=== PATIENT | male | born 1955 | race Caucasian/White ===

== ENCOUNTER → 2016-09-18 | Outpatient (CLI) | payer MEDICAID ==
--- NOTE | 2016-09-18 12:31 | REP ---
Cervical spine series: Seven views. History: Neck pain radiating down the arms for 5 weeks. Findings: There is straightening of the normal cervical lordosis. Limitation of flexion/extension range of motion is seen with no subluxation or instability. Vertebral body heights are preserved. There is degenerative disc disease at C3-4, C4-5, C5-6, and C6-7 with disc space narrowing and osteophyte formation at each of these levels. There is a stable 2-3 mm C2-3 anterior subluxation. There is osteoarthritic facet disease bilaterally at C2-3 and to a somewhat lesser extent C3-4, C4-5, and C5-6. Oblique images demonstrate uncovertebral spurring producing neural foraminal encroachment on the left at C3-4 and C6-7. On the right there is neural foraminal encroachment at C3-4, C5-6, and C6-7 from uncovertebral spurring. Open mouth odontoid view is unremarkable. Impression: Degenerative spondylosis changes as noted above. Signed by Ej Ramirez MD 09/18/2016 02:06 P
== END ==
LOC: M WUC 11:43
PROVIDERS: ATTEND Physician Assistant
DX: M47.812 Spondylosis without myelopathy or radiculopathy, cervical region (principal); M46.02 Spinal enthesopathy, cervical region; M54.2 Cervicalgia; M54.12 Radiculopathy, cervical region

== ENCOUNTER → 2016-11-28 | Outpatient (CLI) | payer OTHER ==
[2016-11-28 14:34] LABS: ALBUMIN 3.8 GM/DL (3.2-5.2); ALBUMIN/GLOBULIN RATIO 1.23 (1.00-1.93); ALKALINE PHOSPHATASE 84 U/L (45-117); ALT/SGPT 27 U/L (12-78); ANION GAP 5 MEQ/L (8-16); AST/SGOT 30 U/L (15-37); BILIRUBIN,TOTAL 0.5 MG/DL (0.2-1.0); BLOOD UREA NITROGEN 24 MG/DL (7-18); CALCIUM LEVEL 9.1 MG/DL (8.8-10.2); CARBON DIOXIDE LEVEL 31 MEQ/L (21-32); CHLORIDE LEVEL 107 MEQ/L (98-107); CHOLESTEROL LEVEL 138 MG/DL (<200); CREATININE FOR GFR 1.16 MG/DL (0.70-1.30); GLOMERULAR FILTRATION RATE > 60.0 (>49); GLUCOSE, FASTING 105 MG/DL (80-110); POTASSIUM SERUM 4.5 MEQ/L (3.5-5.1); SODIUM LEVEL 143 MEQ/L (136-145); TOTAL PROTEIN 6.9 GM/DL (6.4-8.2); TRIGLYCERIDES LEVEL 95 MG/DL (<150)
== END ==
LOC: M WUC 09:57
PROVIDERS: ATTEND Family Medicine
DX: Z12.5 Encounter for screening for malignant neoplasm of prostate (principal); E78.2 Mixed hyperlipidemia

== ENCOUNTER → 2018-06-04 | Outpatient (CLI) | payer OTHER ==
[2018-06-04 17:44] LABS: ALBUMIN 3.9 GM/DL (3.2-5.2); ALKALINE PHOSPHATASE 79 U/L (45-117); ALT/SGPT 35 U/L (12-78); ANION GAP 6 MEQ/L (8-16); AST/SGOT 35 U/L (7-37); BILIRUBIN,TOTAL 0.4 MG/DL (0.2-1.0); BLOOD UREA NITROGEN 22 MG/DL (7-18); CALCIUM LEVEL 8.9 MG/DL (8.8-10.2); CARBON DIOXIDE LEVEL 30 MEQ/L (21-32); CHLORIDE LEVEL 107 MEQ/L (98-107); CHOLESTEROL LEVEL 127 MG/DL (<200); CHOLESTEROL RISK RATIO 2.645 (<5); CREATININE FOR GFR 1.02 MG/DL (0.70-1.30); GLOMERULAR FILTRATION RATE > 60.0 (>49); GLUCOSE, FASTING 91 MG/DL (70-100); HDL CHOLESTEROL 48 MG/DL (>40); LDL CHOLESTEROL 61 MG/DL (<100); NON-HDL-C 79 MG/DL; POTASSIUM SERUM 4.4 MEQ/L (3.5-5.1); PSA SCREENING 0.47 NG/ML (< 4.0); SODIUM LEVEL 143 MEQ/L (136-145); TOTAL PROTEIN 6.9 GM/DL (6.4-8.2); TRIGLYCERIDES LEVEL 89 MG/DL (<150)
== END ==
LOC: M WUC 09:41
DX: E78.2 Mixed hyperlipidemia (principal); Z12.5 Encounter for screening for malignant neoplasm of prostate
CPT/HCPCS: 80053

== ENCOUNTER → 2018-06-08 | Outpatient (REF) | payer OTHER ==
[2018-06-08 17:39] LABS: BASO # 0.1 10^3/uL (0.0-0.2); BASO % 0.7 % (0.0-1.0); EOS # 0.2 10^3/uL (0.0-0.50); EOS % 2.2 % (0.0-3.0); HEMOGLOBIN 14.3 g/dl (13.5-17.5); IMMATURE GRANULOCYTE % 0.3 % (0-3.0); LYMPH # 3.1 10^3/uL (1.5-4.5); LYMPH % 33.7 % (24.0-44.0); MEAN CORPUSCULAR HEMOGLOBIN 28.8 pg (27.0-33.0); MEAN CORPUSCULAR VOLUME 84.7 fl (80.0-96.0); MONO # 0.8 10^3/uL (0.0-0.8); MONO % 9.2 % (0.0-5.0); NEUTROPHILS # 4.9 10^3/uL (1.8-7.7); NEUTROPHILS % 53.9 % (36.0-66.0); PLATELET COUNT, AUTOMATED 256 10^3/uL (150-450); RED BLOOD COUNT 4.96 10^6/uL (4.30-6.10); RED CELL DISTRIBUTION WIDTH 13.4 % (11.5-14.5); WHITE BLOOD COUNT 9.1 10^3/uL (4.0-10.0)
[2018-06-08 18:49] LABS: FREE T4 1.12 NG/DL (0.76-1.46)
== END ==
LOC: M SFHCADAM 15:42
DX: R63.4 Abnormal weight loss (principal)

== ENCOUNTER → 2018-11-16 | Outpatient (REF) | payer OTHER ==
[2018-11-16 19:28] LABS: HEMATOCRIT 44.9 % (42.0-52.0); HEMOGLOBIN 14.8 g/dl (13.5-17.5); MEAN CORPUSCULAR HEMOGLOBIN 28.5 pg (27.0-33.0); MEAN CORPUSCULAR VOLUME 86.3 fl (80.0-96.0); PLATELET COUNT, AUTOMATED 271 10^3/uL (150-450); WHITE BLOOD COUNT 8.9 10^3/uL (4.0-10.0)
[2018-11-16 19:45] LABS: ALBUMIN 4.1 GM/DL (3.2-5.2); ALT/SGPT 27 U/L (12-78); BILIRUBIN,TOTAL 0.6 MG/DL (0.2-1.0); BLOOD UREA NITROGEN 15 MG/DL (7-18); CALCIUM LEVEL 9.1 MG/DL (8.8-10.2); CARBON DIOXIDE LEVEL 30 MEQ/L (21-32); CHLORIDE LEVEL 105 MEQ/L (98-107); CHOLESTEROL LEVEL 143 MG/DL (<200); CHOLESTEROL RISK RATIO 2.465 (<5); CREATININE FOR GFR 1.03 MG/DL (0.70-1.30); FREE T4 1.08 NG/DL (0.76-1.46); GLOMERULAR FILTRATION RATE > 60.0 (>49); GLUCOSE, FASTING 74 MG/DL (70-100); HDL CHOLESTEROL 58 MG/DL (>40); LDL CHOLESTEROL 67 MG/DL (<100); NON-HDL-C 85 MG/DL; POTASSIUM SERUM 4.9 MEQ/L (3.5-5.1); SODIUM LEVEL 140 MEQ/L (136-145); TOTAL PROTEIN 7.5 GM/DL (6.4-8.2); TRIGLYCERIDES LEVEL 88 MG/DL (<150)
== END ==
LOC: M SFHCADAM 16:37
PROVIDERS: ATTEND Family Medicine
DX: R07.9 Chest pain, unspecified (principal); R00.2 Palpitations; E78.2 Mixed hyperlipidemia; R94.31 Abnormal electrocardiogram [ECG] [EKG]

== ENCOUNTER → 2018-12-20 | Outpatient (CLI) | payer OTHER ==
--- NOTE | 2018-12-21 04:40 | REP ---
Clinical: Lung screening. History nicotine dependence. Comparison: 04/23/2014 Technique: Axial low-dose noncontrast images from the thoracic inlet to the upper abdomen using lung screening technique. Findings: The lung guillen are well-aerated. No consolidation, significant nodule or mass lesion is appreciated. Few small scattered noncalcified nodules are again identified and remain stable compared to 2013. No pleural effusion/reaction or pneumothorax. Tracheobronchial tree is patent. Mediastinum demonstrates atherosclerotic changes of the coronary arteries without cardiomegaly as well as congenital aberrant right subclavian artery. Impression: Lung-RADS category I. Stable scattered noncalcified nodules unchanged compared to 04/23/2014. No new significant nodule or suspicious abnormality. Management recommendations include annual low-dose CT evaluation. Electronically Signed by Jonas Jean MD 12/21/2018 04:31 A
== END ==
LOC: M RAD 10:10
PROVIDERS: ATTEND Family Medicine
DX: Z12.2 Encounter for screening for malignant neoplasm of respiratory organs (principal); Z87.891 Personal history of nicotine dependence; R91.8 Other nonspecific abnormal finding of lung field

== ENCOUNTER → 2020-04-08 | Outpatient (REF) | payer MEDICARE, MEDICAID ==
[2020-05-02 11:38] LABS: BASO % 0.4 % (0.0-1.0); EOS # 0.2 10^3/uL (0.0-0.5); HEMATOCRIT 42.8 % (42.0-52.0); HEMOGLOBIN 14.2 g/dl (13.5-17.5); LYMPH # 2.7 10^3/uL (1.5-5.0); LYMPH % 29.8 % (24.0-44.0); MEAN CORPUSCULAR HEMOGLOBIN 28.6 pg (27.0-33.0); MEAN CORPUSCULAR HGB CONC 33.2 g/dl (32.0-36.5); MEAN CORPUSCULAR VOLUME 86.3 fl (80.0-96.0); MONO # 0.8 10^3/uL (0.0-0.8); MONO % 8.7 % (0.0-5.0); NEUTROPHILS # 5.3 10^3/uL (1.5-8.5); NEUTROPHILS % 58.9 % (36.0-66.0); PLATELET COUNT, AUTOMATED 270 10^3/uL (150-450); RED BLOOD COUNT 4.96 10^6/uL (4.30-6.10)
[2020-05-02 11:39] LABS: ERYTHROCYTE SEDIMENTATION RATE 7 mm/hr (0-20)
[2020-05-12 14:53] LABS: ALBUMIN 4.1 GM/DL (3.2-5.2); ALT/SGPT 25 U/L (12-78); BILIRUBIN,TOTAL 0.5 MG/DL (0.2-1.0); BLOOD UREA NITROGEN 22 MG/DL (7-18); CALCIUM LEVEL 9.6 MG/DL (8.8-10.2); CARBON DIOXIDE LEVEL 32 MEQ/L (21-32); CHLORIDE LEVEL 104 MEQ/L (98-107); CHOLESTEROL LEVEL 141 MG/DL (<200); CHOLESTEROL RISK RATIO 2.711 (<5); CREATININE FOR GFR 1.18 MG/DL (0.70-1.30); FREE T4 1.16 NG/DL (0.76-1.46); GLOMERULAR FILTRATION RATE > 60.0 (>49); GLUCOSE, FASTING 89 MG/DL (70-100); HDL CHOLESTEROL 52 MG/DL (>40); LDL CHOLESTEROL 69 MG/DL (<100); NON-HDL-C 89 MG/DL; POTASSIUM SERUM 4.3 MEQ/L (3.5-5.1); SODIUM LEVEL 141 MEQ/L (136-145); TOTAL PROTEIN 7.3 GM/DL (6.4-8.2); TRIGLYCERIDES LEVEL 102 MG/DL (<150)
== END ==
LOC: M LABDRWAD 15:26
PROVIDERS: ATTEND Family Medicine
DX: E78.5 Hyperlipidemia, unspecified (principal); R63.4 Abnormal weight loss; Z12.5 Encounter for screening for malignant neoplasm of prostate
CPT/HCPCS: 36415; 80053; 80061; 84439; 84443; 85025; 85652; G0103; G0402; G0463

== ENCOUNTER → 2020-05-03 | Outpatient (CLI) | payer MEDICARE, MEDICAID ==
[2020-05-03 15:09] LABS: ALT/SGPT 21 U/L (12-78); BILIRUBIN,TOTAL 0.6 MG/DL (0.2-1.0); BLOOD UREA NITROGEN 16 MG/DL (7-18); CALCIUM LEVEL 9.6 MG/DL (8.8-10.2); CARBON DIOXIDE LEVEL 36 MEQ/L (21-32); CHLORIDE LEVEL 105 MEQ/L (98-107); CREATININE FOR GFR 0.93 MG/DL (0.70-1.30); GLOMERULAR FILTRATION RATE > 60.0 (>49); GLUCOSE, FASTING 96 MG/DL (70-100); POTASSIUM SERUM 4.4 MEQ/L (3.5-5.1); SODIUM LEVEL 142 MEQ/L (136-145); TOTAL PROTEIN 7.3 GM/DL (6.4-8.2)
[2020-05-03 15:11] LABS: HEMOGLOBIN A1c 5.6 %
== END ==
LOC: M WUC 08:03
PROVIDERS: ATTEND Family Medicine
DX: H53.31 Abnormal retinal correspondence (principal)

== ENCOUNTER → 2020-09-25 | Outpatient (CLI) | payer MEDICARE, MEDICAID ==
--- NOTE | 2020-09-26 05:31 | REP ---
INDICATION: LUNG CANCER SCREENING COMPARISON: 12/20/2018, 04/23/2014 TECHNIQUE: Axial noncontrast images from the thoracic inlet to the upper abdomen using low-dose lung screening technique (LDCT). FINDINGS: Lung guillen demonstrate moderate emphysematous changes along with stable scattered small nodules measuring no greater than 3 mm and unchanged compared with 2013. Small amounts of linear scarring noted at the lingula and bases. No acute consolidation, significant nodule or mass lesion. No pleural effusion or pneumothorax. Tracheobronchial tree is patent. IMPRESSION: Lung rads category 2. Small stable nodules unchanged compared to 2013. Management recommendations include annual low-dose CT surveillance. <Electronically signed by Jonas Jean > 09/26/20 [id number]
== END ==
LOC: M RAD 18:32
PROVIDERS: ATTEND Family Medicine
DX: Z12.2 Encounter for screening for malignant neoplasm of respiratory organs (principal); Z87.891 Personal history of nicotine dependence

== ENCOUNTER → 2021-03-03 | Outpatient (CLI) | payer MEDICARE, MEDICAID ==
[~2021-03-03] MED LIST: PROHANCE 279.3MG/ML 15ML VIAL As Ordered ONE
--- NOTE | 2021-03-05 08:51 | REP ---
INDICATION: RT RENAL MASS. COMPARISON: [facility] 01/23/2021. TECHNIQUE: Multiple sequences obtained in the axial coronal planes prior to and following the intravenous administration of 11 mL ProHance. FINDINGS: There is a 1.6 cm nodule in the lateral lower peripheral right renal cortex. This demonstrates low signal on both T1 and T2 weighted images. There is internal enhancement with the intravenous administration of contrast. This may represent renal cell carcinoma. Otherwise, there are multiple bilateral benign, nonenhancing renal cysts present in both upper and lower poles. The largest cyst on the right is in the upper pole measuring 1.4 cm in maximum diameter. The largest cyst on the left is in the lower pole and measures 2.1 cm in maximum diameter. There is no hydronephrosis bilaterally. The liver, spleen, adrenals and pancreas demonstrate no abnormality. The gallbladder demonstrates no filling defect or evidence of wall edema. There is no biliary duct or pancreatic duct dilatation. There is no adenopathy or free fluid. IMPRESSION: There is a 1.6 cm nodule in the lateral lower right kidney which demonstrates enhancement and may represent renal cell carcinoma. Multiple bilateral renal cysts. No adenopathy or free fluid. <Electronically signed by Jerson Edge > 03/05/21 [id number]
== END ==
LOC: M RAD 08:06
PROVIDERS: ATTEND Urology
DX: N28.89 Other specified disorders of kidney and ureter (principal); N28.1 Cyst of kidney, acquired
CPT/HCPCS: 74183; A9576

== ENCOUNTER → 2021-04-09 | Outpatient (REF) | payer MEDICARE ==
[~2021-04-09] MED LIST changes: +ATOR1TAB19 PO; +DOK1CAP4 PO; +ECOT81TA5 PO; +FISH1000 PO; +INCR1INH INH; +PERCOCET PO; -PROHANCE 279.3MG/ML 15ML VIAL As Ordered ONE; +VITA-243 PO; +VITMTA PO
[2021-04-09 18:44] LABS: HEMATOCRIT 44.4 % (42.0-52.0); HEMOGLOBIN 14.8 g/dl (13.5-17.5); MEAN CORPUSCULAR HEMOGLOBIN 29.1 pg (27.0-33.0); MEAN CORPUSCULAR HGB CONC 33.3 g/dl (32.0-36.5); MEAN CORPUSCULAR VOLUME 87.4 fl (80.0-96.0); PLATELET COUNT, AUTOMATED 268 10^3/uL (150-450); RED BLOOD COUNT 5.08 10^6/uL (4.30-6.10); WHITE BLOOD COUNT 8.5 10^3/uL (4.0-10.0)
[2021-04-09 18:45] LABS: BASO # 0.1 10^3/uL (0.0-0.2); BASO % 0.6 % (0.0-1.0); EOS # 0.3 10^3/uL (0.0-0.5); EOS % 3.2 % (0.0-3.0); HEMATOCRIT 44.2 % (42.0-52.0); HEMOGLOBIN 14.8 g/dl (13.5-17.5); LYMPH % 34.3 % (24.0-44.0); MEAN CORPUSCULAR HEMOGLOBIN 29.3 pg (27.0-33.0); MEAN CORPUSCULAR HGB CONC 33.5 g/dl (32.0-36.5); MEAN CORPUSCULAR VOLUME 87.5 fl (80.0-96.0); MONO # 0.8 10^3/uL (0.0-0.8); MONO % 9.2 % (2.0-8.0); NEUTROPHILS # 4.5 10^3/uL (1.5-8.5); NEUTROPHILS % 52.5 % (36.0-66.0); PLATELET COUNT, AUTOMATED 261 10^3/uL (150-450); RED BLOOD COUNT 5.05 10^6/uL (4.30-6.10); WHITE BLOOD COUNT 8.7 10^3/uL (4.0-10.0)
[2021-04-09 18:48] LABS: APPEARANCE, URINE CLEAR (CLEAR); BACTERIA, URINE AUTO NEGATIVE (NEGATIVE); BILIRUBIN, URINE AUTO NEGATIVE (NEGATIVE); BLOOD, URINE BLOOD NEGATIVE (NEGATIVE); COLOR, URINE YELLOW (YELLOW); GLUCOSE, URINE (UA) AUTO NEGATIVE (NEGATIVE); KETONE, URINE AUTO NEGATIVE (NEGATIVE); LEUKOCYTE ESTERASE, URINE AUTO NEGATIVE (NEGATIVE); NITRITE, URINE AUTO NEGATIVE (NEGATIVE); PROTEIN, URINE AUTO NEGATIVE (NEGATIVE); RBC, URINE AUTO 0 /HPF (0-3); SPECIFIC GRAVITY URINE AUTO 1.009 (1.002-1.035); SQUAMOUS EPITHELIAL CELL UR AU 0 /HPF (0-6); UROBILINOGEN, URINE AUTO 0.2 mg/dL (0.0-2.0); WBC, URINE AUTO 1 /HPF (0-3)
[2021-04-09 19:06] LABS: ALBUMIN 3.7 GM/DL (3.2-5.2); ALT/SGPT 26 U/L (12-78); BILIRUBIN,TOTAL 0.4 MG/DL (0.2-1.0); BLOOD UREA NITROGEN 17 MG/DL (7-18); CALCIUM LEVEL 8.9 MG/DL (8.8-10.2); CARBON DIOXIDE LEVEL 35 MEQ/L (21-32); CHLORIDE LEVEL 106 MEQ/L (98-107); CREATININE FOR GFR 0.99 MG/DL (0.70-1.30); GLOMERULAR FILTRATION RATE > 60.0 (>49); GLUCOSE, FASTING 58 MG/DL (70-100); POTASSIUM SERUM 4.1 MEQ/L (3.5-5.1); SODIUM LEVEL 143 MEQ/L (136-145); TOTAL PROTEIN 6.8 GM/DL (6.4-8.2)
== END ==
LOC: M SFHCADAM 15:55
PROVIDERS: ATTEND Family Medicine
DX: Z01.818 Encounter for other preprocedural examination (principal); N28.89 Other specified disorders of kidney and ureter

== ENCOUNTER → 2021-04-09 | Outpatient (CLI) | payer MEDICARE ==
--- NOTE | 2021-04-09 16:20 | REP ---
INDICATION: PREOP, RENAL MASS. COMPARISON: 12/14/2015 TECHNIQUE: PA and lateral FINDINGS: The cardiomediastinal silhouette lung guillen are unchanged. A small unchanged nodule is seen in the right lower lobe. No acute patchy parenchymal opacities or pleural effusions have developed. The osseous structures are unchanged. IMPRESSION: No evidence of acute cardiopulmonary disease or significant change compared to the prior plain film examination of 12/14/2015 which is the latest prior for comparison. The patient did have a low-dose screening CT examination of the lungs 09/25/2020 and all interested parties should review that report for further information. CT is more sensitive than is plain radiography in detecting lung nodules. <Electronically signed by Fady Gross > 04/09/21 [id number]
== END ==
LOC: M ADAMS 15:57
PROVIDERS: ATTEND Urology
DX: N28.89 Other specified disorders of kidney and ureter (principal)
CPT/HCPCS: 71046; 80053; 81001; 85025; 85027; 87086; G0103; G0463

== ENCOUNTER → 2021-04-11 | Outpatient (CLI) | payer MEDICARE, MEDICAID ==
[~2021-04-11] MED LIST changes: -DOK1CAP4 PO; -PERCOCET PO
== END ==
LOC: M LABSMTC 09:36
PROVIDERS: ATTEND Anesthesiology
DX: Z01.812 Encounter for preprocedural laboratory examination (principal); Z20.822 Contact with and (suspected) exposure to COVID-19

== ENCOUNTER → 2021-05-13 | Outpatient (CLI) | payer MEDICARE, MEDICAID ==
[~2021-05-13] MED LIST changes: +DOK1CAP4 PO; +PERCOCET PO
[2021-05-13 19:56] LABS: BLOOD UREA NITROGEN 21 MG/DL (7-18); CALCIUM LEVEL 9.7 MG/DL (8.8-10.2); CARBON DIOXIDE LEVEL 32 MEQ/L (21-32); CHLORIDE LEVEL 107 MEQ/L (98-107); CREATININE FOR GFR 1.09 MG/DL (0.70-1.30); GLOMERULAR FILTRATION RATE > 60.0 (>49); GLUCOSE, FASTING 84 MG/DL (70-100); POTASSIUM SERUM 4.1 MEQ/L (3.5-5.1); SODIUM LEVEL 141 MEQ/L (136-145)
[2021-05-13 19:57] LABS: HEMATOCRIT 40.6 % (42.0-52.0); HEMOGLOBIN 13.5 g/dl (13.5-17.5); MEAN CORPUSCULAR HEMOGLOBIN 28.5 pg (27.0-33.0); MEAN CORPUSCULAR HGB CONC 33.3 g/dl (32.0-36.5); MEAN CORPUSCULAR VOLUME 85.8 fl (80.0-96.0); PLATELET COUNT, AUTOMATED 258 10^3/uL (150-450); RED BLOOD COUNT 4.73 10^6/uL (4.30-6.10); WHITE BLOOD COUNT 8.3 10^3/uL (4.0-10.0)
== END ==
LOC: M WUC 15:05
PROVIDERS: ATTEND Urology
DX: C64.1 Malignant neoplasm of right kidney, except renal pelvis (principal)

== ENCOUNTER → 2021-05-29 | Outpatient (REF) | payer MEDICARE, MEDICAID ==
[2021-05-29 13:14] LABS: APPEARANCE, URINE CLEAR (CLEAR); BILIRUBIN, URINE AUTO NEGATIVE (NEGATIVE); BLOOD, URINE BLOOD NEGATIVE (NEGATIVE); COLOR, URINE YELLOW (YELLOW); GLUCOSE, URINE (UA) AUTO NEGATIVE (NEGATIVE); KETONE, URINE AUTO NEGATIVE (NEGATIVE); LEUKOCYTE ESTERASE, URINE AUTO NEGATIVE (NEGATIVE); NITRITE, URINE AUTO NEGATIVE (NEGATIVE); PROTEIN, URINE AUTO NEGATIVE (NEGATIVE); SPECIFIC GRAVITY URINE AUTO 1.004 (1.002-1.035); UROBILINOGEN, URINE AUTO 0.2 mg/dL (0.0-2.0)
[2021-05-29 13:21] LABS: BACTERIA, URINE AUTO NEGATIVE (NEGATIVE); MUCUS, URINE SMALL (NEGATIVE); RBC, URINE AUTO 1 /HPF (0-3); SQUAMOUS EPITHELIAL CELL UR AU 0 /HPF (0-6); WBC, URINE AUTO 1 /HPF (0-3)
== END ==
LOC: M SMT 12:52
PROVIDERS: ATTEND Nurse Practitioner Women's Health
DX: R30.0 Dysuria (principal)

== ENCOUNTER → 2021-06-03 | Outpatient (REF) | payer MEDICARE, MEDICAID ==
[2021-06-03 18:18] LABS: BASO # 0.1 10^3/uL (0.0-0.2); BASO % 0.7 % (0.0-1.0); EOS # 0.3 10^3/uL (0.0-0.5); EOS % 3.9 % (0.0-3.0); HEMATOCRIT 42.7 % (42.0-52.0); HEMOGLOBIN 14.2 g/dl (13.5-17.5); LYMPH # 2.9 10^3/uL (1.5-5.0); LYMPH % 35.8 % (24.0-44.0); MEAN CORPUSCULAR HEMOGLOBIN 28.6 pg (27.0-33.0); MEAN CORPUSCULAR HGB CONC 33.3 g/dl (32.0-36.5); MEAN CORPUSCULAR VOLUME 86.1 fl (80.0-96.0); MONO # 0.7 10^3/uL (0.0-0.8); MONO % 8.4 % (2.0-8.0); NEUTROPHILS # 4.1 10^3/uL (1.5-8.5); PLATELET COUNT, AUTOMATED 281 10^3/uL (150-450); RED BLOOD COUNT 4.96 10^6/uL (4.30-6.10); WHITE BLOOD COUNT 8.1 10^3/uL (4.0-10.0)
[2021-06-03 18:36] LABS: ALBUMIN 3.6 GM/DL (3.2-5.2); ALT/SGPT 22 U/L (12-78); BILIRUBIN,TOTAL 0.5 MG/DL (0.2-1.0); BLOOD UREA NITROGEN 21 MG/DL (7-18); CALCIUM LEVEL 10.2 MG/DL (8.8-10.2); CARBON DIOXIDE LEVEL 32 MEQ/L (21-32); CHLORIDE LEVEL 106 MEQ/L (98-107); CREATININE FOR GFR 1.09 MG/DL (0.70-1.30); GLOMERULAR FILTRATION RATE > 60.0 (>49); GLUCOSE, FASTING 80 MG/DL (70-100); POTASSIUM SERUM 4.3 MEQ/L (3.5-5.1); SODIUM LEVEL 140 MEQ/L (136-145); TOTAL PROTEIN 7.1 GM/DL (6.4-8.2)
== END ==
LOC: M SFHCADAM 14:18
PROVIDERS: ATTEND Family Medicine
DX: R25.2 Cramp and spasm (principal)

== ENCOUNTER → 2021-07-30 | Outpatient (REF) | payer MEDICARE, MEDICAID ==
[2021-07-30 17:41] LABS: HEMATOCRIT 41.8 % (42.0-52.0); HEMOGLOBIN 13.8 g/dl (13.5-17.5); MEAN CORPUSCULAR HEMOGLOBIN 28.3 pg (27.0-33.0); MEAN CORPUSCULAR VOLUME 85.8 fl (80.0-96.0); PLATELET COUNT, AUTOMATED 271 10^3/uL (150-450); RED BLOOD COUNT 4.87 10^6/uL (4.30-6.10)
[2021-07-30 18:07] LABS: ALBUMIN 3.6 GM/DL (3.2-5.2); ALT/SGPT 25 U/L (12-78); BILIRUBIN,TOTAL 0.5 MG/DL (0.2-1.0); BLOOD UREA NITROGEN 17 MG/DL (7-18); CALCIUM LEVEL 9.8 MG/DL (8.8-10.2); CARBON DIOXIDE LEVEL 32 MEQ/L (21-32); CHLORIDE LEVEL 106 MEQ/L (98-107); FREE T4 1.09 NG/DL (0.76-1.46); GLOMERULAR FILTRATION RATE > 60.0 (>49); GLUCOSE, FASTING 63 MG/DL (70-100); POTASSIUM SERUM 4.9 MEQ/L (3.5-5.1); SODIUM LEVEL 140 MEQ/L (136-145); TOTAL PROTEIN 7.1 GM/DL (6.4-8.2)
== END ==
LOC: M SFHCADAM 16:00
PROVIDERS: ATTEND Family Medicine
DX: I11.9 Hypertensive heart disease without heart failure (principal); R00.0 Tachycardia, unspecified

== ENCOUNTER → 2021-08-13 | Outpatient (CLI) | payer MEDICARE, MEDICAID ==
--- NOTE | 2021-08-18 07:49 | ECHO ---
ECHOCARDIOGRAM DATE OF PROCEDURE: 08/13/2021 Age: 66 Gender: Male Height: 177 cm Weight: 57 kg REFERRING PHYSICIAN: Dr. Milton Kendrick PATIENT LOCATION: Outpatient REASON FOR THE STUDY: Hypertensive heart disease, tachycardia 2D MEASUREMENTS: 2D MEASUREMENTS: IVS 1.4 cm LV 3.5 cm LVPW 1.4 cm LA 2.4 cm Aorta 3.3 cm IVC 1.3 cm DOPPLER MEASURMENTS: Peak velocity across the aortic valve 1.0 m/s Peak velocity across the LVOT 0.78 m/s Mitral E 0.53, mitral A 0.53 with a ratio of 1.0 Maximum tricuspid valve velocity 2.4 m/s 2D COMMENTS: 1. Normal left ventricular size with mildly increased left ventricular wall thickness and a normal global left ventricular systolic function. The estimated left ventricular systolic ejection fraction is 60% to 65%. 2. Normal left atrium. Normal right atrium and right ventricle. 3. The atrial septum appeared to be normal without evidence of defect or shunt. 4. Normal aortic root. 5. No pericardial effusion seen. 6. Mildly calcified aortic valve with normal leaflet excursion. Mildly calcified mitral annulus with normal anterior mitral valvae leaflet motion. Normal tricuspid valve and pulmonic valve. 7. The inferior vena cava was normal in size, central venous pressure is most likely normal. DOPPLER: It detects trace mitral regurgitation and mild tricuspid regurgitation. The calculated pulmonary artery systolic pressure varies between 20-40 mmHg. CONCLUSIONS: 1. Normal global left ventricular systolic function with mild concentric left ventricular hypertrophy. 2. Aortic valve sclerosis without stenosis or aortic regurgitation. 3. Mitral annulus calcification with trace mitral regurgitation. 4. Mild tricuspid regurgitation with mild to moderate hypertension.
== END ==
LOC: M CARPUL 09:16
PROVIDERS: ATTEND Family Medicine
DX: I11.9 Hypertensive heart disease without heart failure (principal); R00.0 Tachycardia, unspecified; I08.3 Combined rheumatic disorders of mitral, aortic and tricuspid valves

== ENCOUNTER 2021-09-28 21:38 | Emergency (ER) | payer MEDICARE, MEDICAID ==
[~2021-09-28] VITALS: Ht 165.1 cm; Wt 58.2 kg
[2021-09-28] MEDS ORDERED: MORPHINE 4 MG/ML 1ML VIAL/SYRINGE (J2270) IV PRN (21:55)
[2021-09-28] MEDS ORDERED: ONDANSETRON 4MG/2ML VIAL IV ONE (21:55)
[2021-09-28] MEDS ORDERED: BOOSTRIX/ADACEL VACCINE (DIPHTH/PERTUSS/ACELL/TETANUS) 0.5ML SYR IM ONE (21:55)
[2021-09-28 22:15] LABS: HEMATOCRIT 41.8 % (42.0-52.0); MEAN CORPUSCULAR HEMOGLOBIN 28.8 pg (27.0-33.0); MEAN CORPUSCULAR HGB CONC 33.5 g/dl (32.0-36.5); PLATELET COUNT, AUTOMATED 251 10^3/uL (150-450); RED BLOOD COUNT 4.86 10^6/uL (4.30-6.10); WHITE BLOOD COUNT 11.8 10^3/uL (4.0-10.0)
[2021-09-28] MEDS ORDERED: cefTRIAXone SOD 1 GM in D5W MINI-BAG PLUS 50 ML IV ONE (22:25)
[2021-09-28] MEDS ORDERED: CEPH500C PO (23:22)
[2021-09-28] MEDS ORDERED: PERC5TAB12 PO (23:22)
[2021-09-28] MEDS ORDERED: OXYCODONE/APAP 5MG/325MG(BULK FOR ED) 1 TABLET PO ONE (23:35)
[2021-09-28 23:38] LABS: BLOOD UREA NITROGEN 15 MG/DL (7-18); CALCIUM LEVEL 9.3 MG/DL (8.8-10.2); CARBON DIOXIDE LEVEL 30 MEQ/L (21-32); CHLORIDE LEVEL 109 MEQ/L (98-107); CREATININE FOR GFR 0.94 MG/DL (0.70-1.30); GLOMERULAR FILTRATION RATE > 60.0 (>49); GLUCOSE, FASTING 93 MG/DL (70-100); POTASSIUM SERUM 4.5 MEQ/L (3.5-5.1); SODIUM LEVEL 145 MEQ/L (136-145)
[2021-09-30] MEDS ORDERED: LISI10TA22 PO (13:43)
== END 2021-09-29 00:26 | disposition home or self-care (01) ==
LOC: M ED 21:38
DX: S62.633B Displaced fracture of distal phalanx of left middle finger, initial encounter for open fracture (principal); W29.3XXA Contact with powered garden and outdoor hand tools and machinery, initial encounter; Y92.009 Unspecified place in unspecified non-institutional (private) residence as the place of occurrence of the external cause; Y93.29 Activity, other involving ice and snow; Y99.9 Unspecified external cause status; M18.12 Unilateral primary osteoarthritis of first carpometacarpal joint, left hand; I10 Essential (primary) hypertension; E78.5 Hyperlipidemia, unspecified; Z79.82 Long term (current) use of aspirin; Z79.899 Other long term (current) drug therapy; Z88.0 Allergy status to penicillin
CPT/HCPCS: 73130; 80048; 85027; 90471; 90715; 96374; 96375; 99284; J0696; J2270; J2405

== ENCOUNTER → 2021-09-29 | Outpatient (CLI) | payer MEDICARE, MEDICAID ==
[~2021-09-29] MED LIST changes: +CEPH500C PO; +LISI10TA22 PO; +PERC5TAB12 PO
== END ==
LOC: M SOG 10:44
PROVIDERS: ATTEND Orthopaedic Surgery Hand Surgery
DX: M25.521 Pain in right elbow (principal); M25.531 Pain in right wrist; M79.641 Pain in right hand; M25.579 Pain in unspecified ankle and joints of unspecified foot; M79.671 Pain in right foot; M85.871 Other specified disorders of bone density and structure, right ankle and foot; M19.071 Primary osteoarthritis, right ankle and foot; M19.021 Primary osteoarthritis, right elbow; S62.310A Displaced fracture of base of second metacarpal bone, right hand, initial encounter for closed fracture; S62.312A Displaced fracture of base of third metacarpal bone, right hand, initial encounter for closed fracture; X58.XXXA Exposure to other specified factors, initial encounter; Y92.9 Unspecified place or not applicable; Y93.9 Activity, unspecified; Y99.9 Unspecified external cause status; M19.041 Primary osteoarthritis, right hand

== ENCOUNTER → 2021-09-30 | Outpatient (CLI) | payer MEDICARE, MEDICAID ==
[~2021-09-30] MED LIST changes: +OXYC1TAB23 PO
== END ==
LOC: M LABSMTC 12:38
PROVIDERS: ATTEND Anesthesiology
DX: Z01.812 Encounter for preprocedural laboratory examination (principal); Z20.822 Contact with and (suspected) exposure to COVID-19

== ENCOUNTER 2021-10-02 09:13 | Day surgery (SDC) | payer MEDICARE, MEDICAID ==
[~2021-10-02] VITALS: Ht 165.1 cm; Wt 56.7 kg
[~2021-10-02 09:13] MED LIST changes: +CLINDAMYCIN 900 MG in IV 1 EA IV ONE; +LIDOCAINE 1% MDV 20ML VIAL SQ PRN; +LR 1,000 ML IV ONE; -OXYC1TAB23 PO
[2021-10-02] MEDS ORDERED: MIDAZOLAM INJ 2MG/2ML VIAL (J2250 PER 1MG) As Ordered ONE (11:08)
[2021-10-02] MEDS ORDERED: LIDOCAINE 2% 100MG/5ML SDV (FOR ANES.) As Ordered ONE (11:08)
[2021-10-02] MEDS ORDERED: fentaNYL 100 MCG/2 ML INJECTION (J3010) As Ordered ONE (11:08)
[2021-10-02] MEDS ORDERED: propofoL 200 MG/20 ML VIAL As Ordered ONE (11:08)
[2021-10-02] MEDS ORDERED: BACITRACIN OINTMENT 30GM TUBE As Ordered ONE (12:27)
[2021-10-02] MEDS ORDERED: BUPIVACAINE HCL 0.25% 30ML VIAL As Ordered ONE (12:27)
[2021-10-02] MEDS ORDERED: PHENYLephrine 500MCG 5ML (100MCG/ML) SYRINGE As Ordered ONE (13:03)
[2021-10-02] MEDS ORDERED: ePHEDrine SULFATE 25 MG/5 ML(5MG/ML) SYRINGE As Ordered ONE (13:03)
[2021-10-02 14:55] VITALS: BP 119/64
[2021-10-02] MEDS ORDERED: OXYC1TAB23 PO (16:22)
== END 2021-10-02 15:00 | disposition home or self-care (01) ==
LOC: M SDC 09:13
PROVIDERS: ATTEND Orthopaedic Surgery Hand Surgery
DX: S68.623A Partial traumatic transphalangeal amputation of left middle finger, initial encounter (principal); W29.3XXA Contact with powered garden and outdoor hand tools and machinery, initial encounter; Y93.29 Activity, other involving ice and snow; Y92.014 Private driveway to single-family (private) house as the place of occurrence of the external cause; Y99.9 Unspecified external cause status; F17.218 Nicotine dependence, cigarettes, with other nicotine-induced disorders; I10 Essential (primary) hypertension; Z85.528 Personal history of other malignant neoplasm of kidney; E78.5 Hyperlipidemia, unspecified; J44.9 Chronic obstructive pulmonary disease, unspecified; Z79.899 Other long term (current) drug therapy
CPT/HCPCS: 26951; 76000; J2250; J2370; J3010

== ENCOUNTER → 2021-10-05 | Outpatient (CLI) | payer MEDICARE, MEDICAID ==
[~2021-10-05] MED LIST changes: -CLINDAMYCIN 900 MG in IV 1 EA IV ONE; -LIDOCAINE 1% MDV 20ML VIAL SQ PRN; -LR 1,000 ML IV ONE; +OXYC1TAB23 PO
== END ==
LOC: M SOG 10:24
PROVIDERS: ATTEND Orthopaedic Surgery Hand Surgery
DX: M79.641 Pain in right hand (principal); S68.61 Complete traumatic transphalangeal amputation of other and unspecified finger(s); M79.651 Pain in right thigh; M25.561 Pain in right knee; M79.661 Pain in right lower leg; X58.XXXD Exposure to other specified factors, subsequent encounter; Y92.9 Unspecified place or not applicable; Y93.9 Activity, unspecified; Y99.9 Unspecified external cause status; S62.312D Displaced fracture of base of third metacarpal bone, right hand, subsequent encounter for fracture with routine healing; S62.310D Displaced fracture of base of second metacarpal bone, right hand, subsequent encounter for fracture with routine healing; M11.261 Other chondrocalcinosis, right knee

== ENCOUNTER → 2021-10-14 | Outpatient (CLI) | payer MEDICARE, MEDICAID | LOC: M RAD 09:30 | PROVIDERS: ATTEND Orthopaedic Surgery Hand Surgery | DX: M25.561 Pain in right knee (principal); M79.604 Pain in right leg; M79.605 Pain in left leg ==

== ENCOUNTER → 2021-10-28 | Outpatient (CLI) | payer MEDICARE, MEDICAID | LOC: M SOG 08:41 | PROVIDERS: ATTEND Orthopaedic Surgery Hand Surgery | DX: S62.342D Nondisplaced fracture of base of third metacarpal bone, right hand, subsequent encounter for fracture with routine healing (principal) ==

== ENCOUNTER → 2021-12-17 | Outpatient (CLI) | payer MEDICARE, MEDICAID ==
[2021-12-17 16:50] LABS: BLOOD UREA NITROGEN 15 MG/DL (7-18); CALCIUM LEVEL 9.8 MG/DL (8.8-10.2); CARBON DIOXIDE LEVEL 33 MEQ/L (21-32); CHLORIDE LEVEL 105 MEQ/L (98-107); CREATININE FOR GFR 1.11 MG/DL (0.70-1.30); GLOMERULAR FILTRATION RATE > 60.0 (>49); GLUCOSE, FASTING 107 MG/DL (70-100); POTASSIUM SERUM 4.3 MEQ/L (3.5-5.1); SODIUM LEVEL 142 MEQ/L (136-145)
== END ==
LOC: M WUC 14:30
PROVIDERS: ATTEND Urology
DX: C64.1 Malignant neoplasm of right kidney, except renal pelvis (principal)

== ENCOUNTER → 2022-05-12 | Outpatient (REF) | payer MEDICARE, MEDICAID ==
[2022-05-12 17:27] LABS: HEMATOCRIT 42.2 % (42.0-52.0); HEMOGLOBIN 13.9 g/dl (13.5-17.5); MEAN CORPUSCULAR HEMOGLOBIN 29.1 pg (27.0-33.0); MEAN CORPUSCULAR HGB CONC 32.9 g/dl (32.0-36.5); MEAN CORPUSCULAR VOLUME 88.3 fl (80.0-96.0); PLATELET COUNT, AUTOMATED 289 10^3/uL (150-450); RED BLOOD COUNT 4.78 10^6/uL (4.30-6.10); WHITE BLOOD COUNT 8.1 10^3/uL (4.0-10.0)
[2022-05-12 17:31] LABS: HEMOGLOBIN A1c 5.5 %
[2022-05-12 18:13] LABS: ALBUMIN 3.6 GM/DL (3.2-5.2); ALT/SGPT 21 U/L (12-78); BILIRUBIN,TOTAL 0.4 MG/DL (0.2-1.0); BLOOD UREA NITROGEN 12 MG/DL (7-18); CALCIUM LEVEL 9.7 MG/DL (8.8-10.2); CARBON DIOXIDE LEVEL 27 MEQ/L (21-32); CHLORIDE LEVEL 104 MEQ/L (98-107); CREATININE FOR GFR 0.89 MG/DL (0.70-1.30); FREE T4 1.01 NG/DL (0.76-1.46); GLOMERULAR FILTRATION RATE > 60.0 (>49); GLUCOSE, FASTING 77 MG/DL (70-100); POTASSIUM SERUM 4.8 MEQ/L (3.5-5.1); SODIUM LEVEL 138 MEQ/L (136-145); THYROID STIMULATING HORMONE 0.654 uIU/ML (0.358-3.740); TOTAL PROTEIN 6.9 GM/DL (6.4-8.2)
[2022-05-12 19:39] LABS: VITAMIN B12 LEVEL 376 PG/ML (247-911)
[2022-05-12 19:40] LABS: FOLATE > 24.0 NG/ML (>5.4)
== END ==
LOC: M SFHCADAM 14:49
PROVIDERS: ATTEND Family Medicine
DX: G47.10 Hypersomnia, unspecified (principal); C64.1 Malignant neoplasm of right kidney, except renal pelvis; R73.01 Impaired fasting glucose

== ENCOUNTER → 2022-12-29 | Outpatient (CLI) | payer MEDICARE, MEDICAID ==
[~2022-12-29] MED LIST changes: +ISOVUE-370 76% 100ML VIAL As Ordered ONE
[2022-12-29 11:51] LABS: HEMATOCRIT 45.6 % (42.0-52.0); HEMOGLOBIN 14.9 g/dl (13.5-17.5); MEAN CORPUSCULAR HEMOGLOBIN 29.7 pg (27.0-33.0); MEAN CORPUSCULAR HGB CONC 32.7 g/dl (32.0-36.5); PLATELET COUNT, AUTOMATED 286 10^3/uL (150-450); RED BLOOD COUNT 5.01 10^6/uL (4.30-6.10); WHITE BLOOD COUNT 7.7 10^3/uL (4.0-10.0)
[2022-12-29 12:05] LABS: HEMOGLOBIN A1c 5.3 % (4.0-6.0)
[2022-12-29 12:07] LABS: ALBUMIN 3.7 G/DL (3.2-5.2); ALKALINE PHOSPHATASE 73 U/L (46-116); ALT/SGPT 15 U/L (7.0-40); AST/SGOT 28 U/L (<34); BILIRUBIN,TOTAL 0.5 MG/DL (0.3-1.2); BLOOD UREA NITROGEN 12 MG/DL (9-23); CALCIUM LEVEL 9.3 MG/DL (8.3-10.6); CARBON DIOXIDE LEVEL 30 MMOL/L (20-31); CHLORIDE LEVEL 105 MMOL/L (98-107); CHOLESTEROL LEVEL 126 MG/DL (<200); CHOLESTEROL RISK RATIO 2.69 (<5); CREATININE FOR GFR 0.86 MG/DL (0.70-1.30); GLOMERULAR FILTRATION RATE > 60.0 (>49); GLUCOSE, FASTING 102 MG/DL (74-106); HDL CHOLESTEROL 46.7 MG/DL (>40); LDL CHOLESTEROL 59.7 MG/DL (<100); NON-HDL-C 79.3 MG/DL; POTASSIUM SERUM 4.4 MMOL/L (3.5-5.1); SODIUM LEVEL 139 MMOL/L (136-145); TOTAL PROTEIN 7.1 G/DL (5.7-8.2); TRIGLYCERIDES LEVEL 98 MG/DL (<150)
== END ==
LOC: M RAD 07:32
PROVIDERS: ATTEND Urology
DX: C64.1 Malignant neoplasm of right kidney, except renal pelvis (principal); Q61.02 Congenital multiple renal cysts; E78.2 Mixed hyperlipidemia; R73.01 Impaired fasting glucose; I70.213 Atherosclerosis of native arteries of extremities with intermittent claudication, bilateral legs; I71.40 Abdominal aortic aneurysm, without rupture, unspecified
CPT/HCPCS: 36415; 74170; 76775; 80053; 80061; 83036; 85027; 93925; 93979; Q9967

== ENCOUNTER → 2023-02-10 | Outpatient (CLI) | payer MEDICARE, MEDICAID ==
[~2023-02-10] MED LIST changes: -ISOVUE-370 76% 100ML VIAL As Ordered ONE
== END ==
LOC: M RAD 16:58
PROVIDERS: ATTEND Family Medicine
DX: Z12.2 Encounter for screening for malignant neoplasm of respiratory organs (principal); F17.218 Nicotine dependence, cigarettes, with other nicotine-induced disorders; R91.8 Other nonspecific abnormal finding of lung field

== ENCOUNTER → 2023-08-01 | Outpatient (CLI) | payer MEDICARE, MEDICAID | LOC: M SOG 07:48 | PROVIDERS: ATTEND Physician Assistant | DX: M25.512 Pain in left shoulder (principal) ==

== ENCOUNTER → 2023-10-21 | Outpatient (CLI) | payer MEDICARE, MEDICAID ==
[2023-10-21 10:47] LABS: HEMATOCRIT 45.2 % (42.0-52.0); HEMOGLOBIN 14.9 g/dl (13.5-17.5); MEAN CORPUSCULAR HEMOGLOBIN 30.1 pg (27.0-33.0); MEAN CORPUSCULAR VOLUME 91.3 fl (80.0-96.0); PLATELET COUNT, AUTOMATED 280 10^3/uL (150-450); RED BLOOD COUNT 4.95 10^6/uL (4.30-6.10); WHITE BLOOD COUNT 8.7 10^3/uL (4.0-10.0)
[2023-10-21 11:09] LABS: ALBUMIN 3.6 G/DL (3.2-5.2); ALKALINE PHOSPHATASE 75 U/L (46-116); ALT/SGPT 19 U/L (7.0-40); AST/SGOT 24 U/L (<34); BILIRUBIN,TOTAL 0.5 MG/DL (0.3-1.2); BLOOD UREA NITROGEN 15 MG/DL (9-23); CALCIUM LEVEL 9.4 MG/DL (8.3-10.6); CARBON DIOXIDE LEVEL 32 MMOL/L (20-31); CHLORIDE LEVEL 109 MMOL/L (98-107); CHOLESTEROL LEVEL 134 MG/DL (<200); CHOLESTEROL RISK RATIO 2.75 (<5); CREATININE FOR GFR 0.88 MG/DL (0.70-1.30); GLOMERULAR FILTRATION RATE > 60.0 (>49); GLUCOSE, FASTING 89 MG/DL (74-106); HDL CHOLESTEROL 48.6 MG/DL (>40); LDL CHOLESTEROL 67.6 MG/DL (<100); NON-HDL-C 85.4 MG/DL; POTASSIUM SERUM 4.5 MMOL/L (3.5-5.1); SODIUM LEVEL 141 MMOL/L (136-145); TOTAL PROTEIN 6.6 G/DL (5.7-8.2); TRIGLYCERIDES LEVEL 89 MG/DL (<150)
[2023-10-21 11:12] LABS: HEMOGLOBIN A1c 5.3 % (4.0-6.0)
== END ==
LOC: M WUC 08:24
PROVIDERS: ATTEND Family Medicine
DX: E78.2 Mixed hyperlipidemia (principal); J43.9 Emphysema, unspecified; R73.01 Impaired fasting glucose

== ENCOUNTER → 2023-11-08 | Outpatient (CLI) | payer MEDICARE, MEDICAID | LOC: M RAD 10:52 | PROVIDERS: ATTEND Family Medicine | DX: Z12.2 Encounter for screening for malignant neoplasm of respiratory organs (principal); F17.210 Nicotine dependence, cigarettes, uncomplicated; J43.9 Emphysema, unspecified; Z53.9 Procedure and treatment not carried out, unspecified reason ==

== ENCOUNTER → 2023-12-12 | Outpatient (CLI) | payer MEDICARE, MEDICAID | LOC: M RAD 16:12 | PROVIDERS: ATTEND Physician Assistant | DX: M19.112 Post-traumatic osteoarthritis, left shoulder (principal) ==

== ENCOUNTER → 2024-01-04 | Outpatient (REF) | payer MEDICARE, MEDICAID ==
[2024-01-04 13:57] LABS: BLOOD UREA NITROGEN 16 MG/DL (9-23); CALCIUM LEVEL 10.1 MG/DL (8.3-10.6); CARBON DIOXIDE LEVEL 33 MMOL/L (20-31); CHLORIDE LEVEL 103 MMOL/L (98-107); CREATININE FOR GFR 0.92 MG/DL (0.70-1.30); GLOMERULAR FILTRATION RATE > 60.0 (>49); GLUCOSE, FASTING 65 MG/DL (74-106); POTASSIUM SERUM 4.3 MMOL/L (3.5-5.1); SODIUM LEVEL 140 MMOL/L (136-145)
== END ==
LOC: M LABWUC 12:56
PROVIDERS: ATTEND Urology
DX: C64.1 Malignant neoplasm of right kidney, except renal pelvis (principal)

== ENCOUNTER → 2024-01-06 | Outpatient (CLI) | payer MEDICARE, MEDICAID ==
[~2024-01-06] MED LIST changes: +ISOVUE-370 76% 100ML VIAL ONE
== END ==
LOC: M PLAIMG 08:09
PROVIDERS: ATTEND Urology
DX: C64.1 Malignant neoplasm of right kidney, except renal pelvis (principal); N28.1 Cyst of kidney, acquired; K59.00 Constipation, unspecified
CPT/HCPCS: 74170; Q9967

== ENCOUNTER → 2024-02-03 | Outpatient (CLI) | payer MEDICARE, MEDICAID ==
[~2024-02-03] MED LIST changes: +ISOVUE-300 61% 100ML VIAL As Ordered ONE; -ISOVUE-370 76% 100ML VIAL ONE; +LIDOCAINE 1% MDV 20ML VIAL As Ordered ONE; +TRIAMCINOLONE ACETONIDE SUSP 40MG/ML 1ML VIAL As Ordered ONE
== END ==
LOC: M RAD 15:12
PROVIDERS: ATTEND Physician Assistant
DX: M19.112 Post-traumatic osteoarthritis, left shoulder (principal)
CPT/HCPCS: 20610; 77002; J0665; J3301; Q9967

== ENCOUNTER → 2024-02-09 | Outpatient (CLI) | payer MEDICARE, MEDICAID ==
[~2024-02-09] MED LIST changes: -ISOVUE-300 61% 100ML VIAL As Ordered ONE; -LIDOCAINE 1% MDV 20ML VIAL As Ordered ONE; -TRIAMCINOLONE ACETONIDE SUSP 40MG/ML 1ML VIAL As Ordered ONE
== END ==
LOC: M RAD 15:15
PROVIDERS: ATTEND Physician Assistant
DX: I65.29 Occlusion and stenosis of unspecified carotid artery (principal)

== ENCOUNTER → 2024-03-01 | Outpatient (CLI) | payer MEDICAID, MEDICARE | LOC: M RAD 14:28 | PROVIDERS: ATTEND Physician Assistant | DX: E04.1 Nontoxic single thyroid nodule (principal) ==

== ENCOUNTER → 2024-03-02 | Outpatient (REF) | payer MEDICARE, MEDICAID | LOC: M SFHCADAM 16:09 | PROVIDERS: ATTEND Family Medicine | DX: E04.1 Nontoxic single thyroid nodule (principal) ==

== ENCOUNTER → 2024-03-20 | Outpatient (REF) | payer MEDICARE, MEDICAID ==
[2024-03-20 18:57] LABS: THYROID STIMULATING HORMONE 0.477 uIU/ML (0.55-4.78)
[2024-03-20 19:00] LABS: FREE T4 1.14 NG/DL (0.89-1.76)
== END ==
LOC: M LABWUC 16:17
PROVIDERS: ATTEND Family Medicine
DX: E04.1 Nontoxic single thyroid nodule (principal)

== ENCOUNTER → 2024-03-30 | Outpatient (CLI) | payer MEDICAID, MEDICARE ==
[~2024-03-30] MED LIST changes: +ALBU8.5H; +BACIOIN5 OS; +CALC600T60 PO; +FISH1CAP26 PO; +LIDOCAINE 1% MDV 20ML VIAL As Ordered ONE; +MULTTAB61 PO
== END ==
LOC: M IRPRO 09:00
PROVIDERS: ATTEND Otolaryngology
DX: E04.1 Nontoxic single thyroid nodule (principal)

== ENCOUNTER → 2024-05-10 | Outpatient (CLI) | payer MEDICARE ==
[~2024-05-10] MED LIST changes: -BACIOIN5 OS; +ISOVUE-300 61% 100ML VIAL As Ordered ONE; +TRIAMCINOLONE ACETONIDE SUSP 40MG/ML 1ML VIAL As Ordered ONE
== END ==
LOC: M RAD 13:37
PROVIDERS: ATTEND Physician Assistant
DX: M19.112 Post-traumatic osteoarthritis, left shoulder (principal)
CPT/HCPCS: 20610; 77002; J0665; J3301; Q9967

== ENCOUNTER → 2024-05-15 | Outpatient (REF) | payer MEDICARE, MEDICAID ==
[~2024-05-15] MED LIST changes: +BACIOIN5 OS; -ISOVUE-300 61% 100ML VIAL As Ordered ONE; -LIDOCAINE 1% MDV 20ML VIAL As Ordered ONE; -TRIAMCINOLONE ACETONIDE SUSP 40MG/ML 1ML VIAL As Ordered ONE
[2024-05-15 18:04] LABS: BASO # 0.1 10^3/uL (0.0-0.2); BASO % 0.5 % (0.0-1.0); EOS # 0.3 10^3/uL (0.0-0.5); EOS % 2.5 % (0.0-3.0); HEMATOCRIT 42.3 % (42.0-52.0); HEMOGLOBIN 14.1 g/dl (13.5-17.5); LYMPH # 3.3 10^3/uL (1.5-5.0); LYMPH % 31.3 % (24.0-44.0); MEAN CORPUSCULAR HEMOGLOBIN 30.1 pg (27.0-33.0); MEAN CORPUSCULAR HGB CONC 33.3 g/dl (32.0-36.5); MEAN CORPUSCULAR VOLUME 90.4 fl (80.0-96.0); MONO % 9.4 % (2.0-8.0); PLATELET COUNT, AUTOMATED 291 10^3/uL (150-450); RED BLOOD COUNT 4.68 10^6/uL (4.30-6.10); WHITE BLOOD COUNT 10.6 10^3/uL (4.0-10.0)
[2024-05-15 18:32] LABS: ALBUMIN 3.7 G/DL (3.2-5.2); ALKALINE PHOSPHATASE 78 U/L (46-116); ALT/SGPT 22 U/L (7.0-40); AST/SGOT 25 U/L (<34); BILIRUBIN,TOTAL 0.5 MG/DL (0.3-1.2); BLOOD UREA NITROGEN 21 MG/DL (9-23); CALCIUM LEVEL 9.1 MG/DL (8.3-10.6); CARBON DIOXIDE LEVEL 32 MMOL/L (20-31); CHLORIDE LEVEL 104 MMOL/L (98-107); CREATININE FOR GFR 0.89 MG/DL (0.70-1.30); GLOMERULAR FILTRATION RATE > 60.0 (>49); GLUCOSE, FASTING 65 MG/DL (74-106); POTASSIUM SERUM 3.8 MMOL/L (3.5-5.1); SODIUM LEVEL 140 MMOL/L (136-145); TOTAL PROTEIN 6.7 G/DL (5.7-8.2)
== END ==
LOC: M SFHCADAM 14:53
PROVIDERS: ATTEND Physician Assistant Medical
DX: Z01.818 Encounter for other preprocedural examination (principal); C73 Malignant neoplasm of thyroid gland

== ENCOUNTER → 2024-05-15 | Outpatient (CLI) | payer MEDICARE, MEDICAID | LOC: M ADAMS 14:59 | PROVIDERS: ATTEND Physician Assistant Medical | DX: Z01.818 Encounter for other preprocedural examination (principal); C73 Malignant neoplasm of thyroid gland ==

== ENCOUNTER 2024-05-21 08:25 | Observation (INO) | payer MEDICAID, MEDICARE ==
[~2024-05-21] VITALS: Ht 177.8 cm; Wt 52.0 kg
[~2024-05-21 08:25] MED LIST changes: -BACIOIN5 OS
[2024-05-21] MEDS: LIDOCAINE W/EPINEPHRINE 1% 20ML VIAL As Ordered ONE (11:23)
[2024-05-21] MEDS ORDERED: ONDANSETRON 4MG 2ML VIAL As Ordered ONE (11:33)
[2024-05-21] MEDS ORDERED: fentaNYL 250 MCG/5 ML INJECTION As Ordered ONE (11:33)
[2024-05-21] MEDS ORDERED: propofoL 200 MG/20 ML VIAL As Ordered ONE (11:33)
[2024-05-21] MEDS ORDERED: dexmedeTOMIDine (4MCG/ML)200MCG/50ML BTL (PRECEDEX) As Ordered ONE (11:33)
[2024-05-21] MEDS ORDERED: PHENYLEPHRINE 10MG/ML 1ML VIAL As Ordered ONE (11:33)
[2024-05-21] MEDS ORDERED: METOCLOPRAMIDE INJ 10MG/2ML VIAL As Ordered ONE (11:33)
[2024-05-21] MEDS ORDERED: PHENYLephrine 500MCG 5ML (100MCG/ML) SYRINGE As Ordered ONE (11:33)
[2024-05-21] MEDS ORDERED: ROCURONIUM BROMIDE 50MG/5ML VIAL As Ordered ONE (11:33)
[2024-05-21] MEDS ORDERED: ePHEDrine SULFATE 25 MG/5 ML(5MG/ML) SYRINGE As Ordered ONE (11:33)
[2024-05-21] MEDS ORDERED: LIDOCAINE 2% 100MG/5ML SDV (FOR ANES.) As Ordered ONE (11:33)
[2024-05-21] MEDS ORDERED: SUGAMMADEX SODIUM 500 MG/5 ML VIAL (BRIDION) As Ordered ONE (11:33)
[2024-05-21] MEDS ORDERED: MIDAZOLAM INJ 2MG/2ML VIAL As Ordered ONE (11:33)
[2024-05-21] MEDS ORDERED: ACETAMINOPHEN 1000MG 100ML IV BAG As Ordered ONE (11:34)
[2024-05-21] MEDS ORDERED: CALCIUM CHLORIDE 10% 1 GM/10 ML SYR As Ordered ONE (12:03)
[2024-05-21] MEDS ORDERED: ALBUTEROL 6.7GM INHALER **FOR ANES. CART/OMNICELL ONLY As Ordered ONE (12:54)
[2024-05-21] MEDS ORDERED: ONDANSETRON 4MG 2ML VIAL IV PRN (14:15)
[2024-05-21] MEDS ORDERED: HYDROMORPHONE HCL 0.5 MG/ 0.5 ML SYRINGE IV PRN (14:15)
[2024-05-21] MEDS ORDERED: fentaNYL 100 MCG/2 ML INJECTION IV PRN (14:15)
[2024-05-21] MEDS: LR 1,000 ML IV SCH ×2 (14:15→17:21)
[2024-05-21] MEDS: oxyCODONE 5MG TAB PO PRN (14:33)
[2024-05-21] MEDS ORDERED: ALBUTEROL SULFATE 2.5MG/0.5ML INH NEB SOLN NEB PRN (15:15)
[2024-05-21 15:50] LABS: HEMATOCRIT 43.4 % (42.0-52.0); HEMOGLOBIN 14.2 g/dl (13.5-17.5); MEAN CORPUSCULAR HEMOGLOBIN 29.6 pg (27.0-33.0); MEAN CORPUSCULAR HGB CONC 32.7 g/dl (32.0-36.5); MEAN CORPUSCULAR VOLUME 90.6 fl (80.0-96.0); PLATELET COUNT, AUTOMATED 264 10^3/uL (150-450); RED BLOOD COUNT 4.79 10^6/uL (4.30-6.10); WHITE BLOOD COUNT 10.3 10^3/uL (4.0-10.0)
[2024-05-21] MEDS ORDERED: PILL CUTTER 1 EACH XX PRN (15:50)
[2024-05-21 16:01] LABS: INR 1.05; PROTHROMBIN TIME 13.4 SECONDS (12.5-14.5)
[2024-05-21] MEDS ORDERED: ANEXSIA, NORCO 7.5MG/325MG TABLET(HYDROCODONE/APAP) PO PRN (16:35)
[2024-05-21] MEDS: NICOTINE 21MG/24HR 1 EA TRANSDERMAL TD SCH (17:24)
[2024-05-21 18:35] VITALS: BP 170/78; TEMP 99; O2SAT 90
[2024-05-21 19:35] VITALS: BP 154/82; TEMP 98.6; O2SAT 91
[2024-05-21 20:35] VITALS: BP 149/89; TEMP 98.2; O2SAT 93
[2024-05-22] VITALS: BP 154/86; TEMP 98.1; O2SAT 92
[2024-05-22 04:00] VITALS: BP 150/88; TEMP 98.4; O2SAT 91
[2024-05-22] MEDS: ONDANSETRON 4MG 2ML VIAL IV ONE (05:19)
[2024-05-22 07:22] LABS: HEMATOCRIT 40.2 % (42.0-52.0); HEMOGLOBIN 13.5 g/dl (13.5-17.5); MEAN CORPUSCULAR HGB CONC 33.6 g/dl (32.0-36.5); MEAN CORPUSCULAR VOLUME 89.3 fl (80.0-96.0); PLATELET COUNT, AUTOMATED 276 10^3/uL (150-450)
[2024-05-22 07:43] LABS: ALBUMIN 3.1 G/DL (3.2-5.2); ALKALINE PHOSPHATASE 77 U/L (46-116); ALT/SGPT 14 U/L (7.0-40); AST/SGOT 20 U/L (<34); BILIRUBIN,TOTAL 0.7 MG/DL (0.3-1.2); BLOOD UREA NITROGEN 18 MG/DL (9-23); CALCIUM LEVEL 9.8 MG/DL (8.3-10.6); CARBON DIOXIDE LEVEL 35 MMOL/L (20-31); CHLORIDE LEVEL 101 MMOL/L (98-107); CREATININE FOR GFR 0.81 MG/DL (0.70-1.30); GLOMERULAR FILTRATION RATE > 60.0 (>49); GLUCOSE, FASTING 107 MG/DL (74-106); POTASSIUM SERUM 4.4 MMOL/L (3.5-5.1); SODIUM LEVEL 140 MMOL/L (136-145); TOTAL PROTEIN 6.1 G/DL (5.7-8.2)
[2024-05-22 08:00] VITALS: BP 153/85; TEMP 98.2; O2SAT 93
[2024-05-22] MEDS: TIOTROPIUM INHALER/CAPSULE (SPIRIVA) INH SCH (08:00)
[2024-05-22 08:31] VITALS: BP 137/79
[2024-05-22] MEDS: ACETAMINOPHEN TAB 650MG DOSE (2X325MG) PO PRN (08:32)
[2024-05-22] MEDS: ATORVASTATIN 10 MG TAB PO SCH (08:32)
[2024-05-22] MEDS ORDERED: BACIOIN5 OS (11:18)
== END 2024-05-22 12:00 | disposition home or self-care (01) ==
LOC: M SDC 08:25 → M MSPAV 08:26
PROVIDERS: ADMIT Internal Medicine; ATTEND Otolaryngology
DX: C73 Malignant neoplasm of thyroid gland (principal); J44.9 Chronic obstructive pulmonary disease, unspecified; F17.218 Nicotine dependence, cigarettes, with other nicotine-induced disorders; E78.5 Hyperlipidemia, unspecified; I73.9 Peripheral vascular disease, unspecified; E55.9 Vitamin D deficiency, unspecified; M51.36 Other intervertebral disc degeneration, lumbar region; Z88.0 Allergy status to penicillin; Z79.82 Long term (current) use of aspirin; Z79.899 Other long term (current) drug therapy
CPT/HCPCS: 36415; 60220; 80053; 85027; 85610; 88307; 96361; 96374; G0378; J0131; J1100; J2250; J2371; J2405; J2765; J3010

== ENCOUNTER → 2024-06-22 | Outpatient (CLI) | payer MEDICARE, MEDICAID ==
[~2024-06-22] MED LIST changes: +BACIOIN5 OS
[2024-06-22 13:44] LABS: ALBUMIN 3.7 G/DL (3.2-5.2); ALKALINE PHOSPHATASE 87 U/L (46-116); ALT/SGPT 17 U/L (7.0-40); AST/SGOT 26 U/L (<34); BILIRUBIN,TOTAL 0.4 MG/DL (0.3-1.2); BLOOD UREA NITROGEN 15 MG/DL (9-23); CALCIUM LEVEL 9.5 MG/DL (8.3-10.6); CARBON DIOXIDE LEVEL 30 MMOL/L (20-31); CHLORIDE LEVEL 107 MMOL/L (98-107); CREATININE FOR GFR 0.84 MG/DL (0.70-1.30); GLOMERULAR FILTRATION RATE > 60.0 (>49); GLUCOSE, FASTING 118 MG/DL (74-106); POTASSIUM SERUM 3.9 MMOL/L (3.5-5.1); SODIUM LEVEL 139 MMOL/L (136-145)
[2024-06-22 13:46] LABS: FREE T4 1.12 NG/DL (0.89-1.76); THYROID STIMULATING HORMONE 2.655 uIU/ML (0.55-4.78)
[2024-06-22 13:54] LABS: HEMOGLOBIN 13.7 g/dl (13.5-17.5); MEAN CORPUSCULAR HEMOGLOBIN 29.7 pg (27.0-33.0); MEAN CORPUSCULAR HGB CONC 32.6 g/dl (32.0-36.5); MEAN CORPUSCULAR VOLUME 91.1 fl (80.0-96.0); PLATELET COUNT, AUTOMATED 283 10^3/uL (150-450); RED BLOOD COUNT 4.61 10^6/uL (4.30-6.10); WHITE BLOOD COUNT 7.4 10^3/uL (4.0-10.0)
[2024-06-26 09:42] LABS: THRYOGLOBULIN ANTIBODIES (ATA) < 1 IU/mL (< or = 1); THYROGLOBULIN QUANTITATIVE 13.6 ng/mL (2.8-40.9)
== END ==
LOC: M WUC 09:41
PROVIDERS: ATTEND Family Medicine
DX: C73 Malignant neoplasm of thyroid gland (principal)

== ENCOUNTER → 2024-07-05 | Outpatient (CLI) | payer MEDICAID, MEDICARE | LOC: M RAD 16:31 | PROVIDERS: ATTEND Family Medicine | DX: Z12.2 Encounter for screening for malignant neoplasm of respiratory organs (principal); F17.210 Nicotine dependence, cigarettes, uncomplicated ==

== ENCOUNTER → 2024-08-02 | Outpatient (CLI) | payer MEDICARE ==
[2024-08-02 19:36] LABS: THYROID STIMULATING HORMONE 2.402 uIU/ML (0.55-4.78)
== END ==
LOC: M WUC 13:09
PROVIDERS: ATTEND Nurse Practitioner Family
DX: C73 Malignant neoplasm of thyroid gland (principal)

== ENCOUNTER → 2024-08-14 | Outpatient (CLI) | payer MEDICARE ==
[~2024-08-14] MED LIST changes: +ISOVUE-300 61% 100ML VIAL As Ordered ONE; +LIDOCAINE 1% MDV 20ML VIAL As Ordered ONE; +TRIAMCINOLONE ACETONIDE SUSP 40MG/ML 1ML VIAL As Ordered ONE
== END ==
LOC: M RAD 14:50
PROVIDERS: ATTEND Physician Assistant
DX: M19.112 Post-traumatic osteoarthritis, left shoulder (principal)
CPT/HCPCS: 20610; 77002; J0665; J3301; Q9967

== ENCOUNTER → 2024-10-12 | Outpatient (CLI) | payer MEDICARE, MEDICAID ==
[~2024-10-12] MED LIST changes: -ISOVUE-300 61% 100ML VIAL As Ordered ONE; -LIDOCAINE 1% MDV 20ML VIAL As Ordered ONE; -TRIAMCINOLONE ACETONIDE SUSP 40MG/ML 1ML VIAL As Ordered ONE
== END ==
LOC: M ADAMS 09:55
PROVIDERS: ATTEND Physician Assistant
DX: J43.9 Emphysema, unspecified (principal)

== ENCOUNTER → 2024-11-16 | Outpatient (CLI) | payer MEDICARE, MEDICAID ==
[~2024-11-16] MED LIST changes: +ISOVUE-300 61% 100ML VIAL As Ordered ONE; +LIDOCAINE 1% MDV 20ML VIAL As Ordered ONE; +TRIAMCINOLONE ACETONIDE SUSP 40MG/ML 1ML VIAL As Ordered ONE
== END ==
LOC: M RAD 15:25
PROVIDERS: ATTEND Physician Assistant
DX: M19.112 Post-traumatic osteoarthritis, left shoulder (principal)
CPT/HCPCS: 20610; 77002; J0665; J3301; Q9967

== ENCOUNTER → 2024-11-24 | Outpatient (CLI) | payer MEDICAID, MEDICARE ==
[~2024-11-24] MED LIST changes: -ISOVUE-300 61% 100ML VIAL As Ordered ONE; -LIDOCAINE 1% MDV 20ML VIAL As Ordered ONE; -TRIAMCINOLONE ACETONIDE SUSP 40MG/ML 1ML VIAL As Ordered ONE
[2024-11-24 11:18] LABS: FREE T4 1.15 NG/DL (0.89-1.76); THYROID STIMULATING HORMONE 2.172 uIU/ML (0.55-4.78)
== END ==
LOC: M LAB 10:08
PROVIDERS: ATTEND Nurse Practitioner Family
DX: C73 Malignant neoplasm of thyroid gland (principal)

== ENCOUNTER → 2024-12-17 | Outpatient (CLI) | payer MEDICARE | LOC: M RAD 16:16 | PROVIDERS: ATTEND Nurse Practitioner Family | DX: C73 Malignant neoplasm of thyroid gland (principal) ==

== ENCOUNTER → 2025-01-01 | Outpatient (CLI) | payer MEDICARE ==
[2025-01-01 13:29] LABS: CHOLESTEROL RISK RATIO 2.85 (<5)
== END ==
LOC: M WUC 08:04
PROVIDERS: ATTEND Internal Medicine Cardiovascular Disease
DX: R06.02 Shortness of breath (principal); I10 Essential (primary) hypertension; E78.49 Other hyperlipidemia

== ENCOUNTER → 2025-01-25 | Outpatient (REF) | payer MEDICARE ==
[2025-01-25 13:37] LABS: BLOOD UREA NITROGEN 17 MG/DL (9-23); CALCIUM LEVEL 9.1 MG/DL (8.3-10.6); CARBON DIOXIDE LEVEL 32 MMOL/L (20-31); CHLORIDE LEVEL 106 MMOL/L (98-107); CREATININE FOR GFR 0.83 MG/DL (0.70-1.30); GLOMERULAR FILTRATION RATE > 90.0 (>42); GLUCOSE, FASTING 103 MG/DL (74-106); POTASSIUM SERUM 4.2 MMOL/L (3.5-5.1); SODIUM LEVEL 142 MMOL/L (136-145)
== END ==
LOC: M LABWUC 12:31
PROVIDERS: ATTEND Urology
DX: C64.1 Malignant neoplasm of right kidney, except renal pelvis (principal)

== ENCOUNTER → 2025-01-28 | Outpatient (CLI) | payer MEDICARE ==
[~2025-01-28] MED LIST changes: +ISOVUE-370 76% 100ML VIAL As Ordered ONE
== END ==
LOC: M RAD 13:02
PROVIDERS: ATTEND Urology
DX: C64.1 Malignant neoplasm of right kidney, except renal pelvis (principal); N28.1 Cyst of kidney, acquired; Z90.5 Acquired absence of kidney
CPT/HCPCS: 74170; Q9967

== ENCOUNTER → 2025-04-04 | Outpatient (CLI) | payer MEDICARE ==
[~2025-04-04] MED LIST changes: +ISOVUE-300 61% 100 ML VIAL As Ordered ONE; -ISOVUE-370 76% 100ML VIAL As Ordered ONE; +LIDOCAINE 1% MDV 20 ML VIAL As Ordered ONE; +TRIAMCINOLONE ACETONIDE SUSP 40MG/ML 1ML VIAL As Ordered ONE
== END ==
LOC: M RAD 13:59
PROVIDERS: ATTEND Physician Assistant
DX: M19.112 Post-traumatic osteoarthritis, left shoulder (principal)
CPT/HCPCS: 20610; 77002; J0665; J3301; Q9967

== ENCOUNTER → 2025-06-21 | Outpatient (CLI) | payer MEDICARE ==
[~2025-06-21] MED LIST changes: -ISOVUE-300 61% 100 ML VIAL As Ordered ONE; -LIDOCAINE 1% MDV 20 ML VIAL As Ordered ONE; -TRIAMCINOLONE ACETONIDE SUSP 40MG/ML 1ML VIAL As Ordered ONE
== END ==
LOC: M SOG 07:20
PROVIDERS: ATTEND Physician Assistant
DX: M19.012 Primary osteoarthritis, left shoulder (principal)

== ENCOUNTER → 2025-07-09 | Outpatient (CLI) | payer MEDICARE ==
[2025-07-09 14:39] LABS: FREE T4 1.11 NG/DL (0.89-1.76)
[2025-07-11 12:13] LABS: THRYOGLOBULIN ANTIBODIES (ATA) < 1 IU/mL (< or = 1); THYROGLOBULIN QUANTITATIVE 12.4 ng/mL (2.8-40.9)
== END ==
LOC: M WUC 11:40
PROVIDERS: ATTEND Nurse Practitioner Family
DX: C73 Malignant neoplasm of thyroid gland (principal)

== ENCOUNTER → 2025-07-10 | Outpatient (CLI) | payer MEDICARE ==
[~2025-07-10] MED LIST changes: +ISOVUE-300 61% 100 ML VIAL As Ordered ONE; +LIDOCAINE 1% MDV 20 ML VIAL As Ordered ONE; +TRIAMCINOLONE ACETONIDE SUSP 40MG/ML 1ML VIAL As Ordered ONE
== END ==
LOC: M RAD 14:33
PROVIDERS: ATTEND Physician Assistant
DX: M19.112 Post-traumatic osteoarthritis, left shoulder (principal)
CPT/HCPCS: 20610; 77002; J0665; J3301; Q9967

== ENCOUNTER → 2025-07-27 | Outpatient (CLI) | payer MEDICARE ==
[~2025-07-27] MED LIST changes: -ISOVUE-300 61% 100 ML VIAL As Ordered ONE; -LIDOCAINE 1% MDV 20 ML VIAL As Ordered ONE; -TRIAMCINOLONE ACETONIDE SUSP 40MG/ML 1ML VIAL As Ordered ONE
[2025-07-27 09:55] LABS: PLATELET COUNT, AUTOMATED 343 10^3/uL (150-450)
[2025-07-27 10:20] LABS: ESTIMATED AVERAGE GLUCOSE 114.0 MG/DL (60-110)
[2025-07-27 10:22] LABS: ALT/SGPT 17 U/L (7.0-40); AST/SGOT 29 U/L (<34); CALCIUM LEVEL 9.4 MG/DL (8.3-10.6); CARBON DIOXIDE LEVEL 31 MMOL/L (20-31); CHLORIDE LEVEL 104 MMOL/L (98-107); CHOLESTEROL LEVEL 133 MG/DL (<200); CHOLESTEROL RISK RATIO 2.75 (<5); CREATININE FOR GFR 0.94 MG/DL (0.70-1.30); GLOMERULAR FILTRATION RATE 87.2 (>42); LDL CHOLESTEROL 68.7 MG/DL (<100); MAGNESIUM LEVEL 1.7 MG/DL (1.8-2.4); NON-HDL-C 84.7 MG/DL; POTASSIUM SERUM 4.8 MMOL/L (3.5-5.1); SODIUM LEVEL 141 MMOL/L (136-145); TRIGLYCERIDES LEVEL 80 MG/DL (<150)
[2025-07-27 10:31] LABS: PSA SCREENING 0.43 NG/ML (< 4.00)
[2025-07-27 10:35] LABS: VITAMIN B12 LEVEL 629 PG/ML (211-911)
== END ==
LOC: M LAB 08:56
PROVIDERS: ATTEND Family Medicine
DX: R63.4 Abnormal weight loss (principal); R25.2 Cramp and spasm; Z41.2 Encounter for routine and ritual male circumcision; E78.00 Pure hypercholesterolemia, unspecified; Z12.5 Encounter for screening for malignant neoplasm of prostate
CPT/HCPCS: 36415; 80053; 80061; 82607; 82746; 83036; 83735; 85027; G0103

== ENCOUNTER → 2025-09-02 | Outpatient (CLI) | payer MEDICARE | LOC: M RAD 17:05 | PROVIDERS: ATTEND Family Medicine | DX: F17.210 Nicotine dependence, cigarettes, uncomplicated (principal) ==